=== PATIENT | female | born 1975 | race Two or more races ===

== ENCOUNTER 2022-12-22 17:07 | Emergency (ER) | payer BC ==
[~2022-12-22] VITALS: Ht 157.5 cm; Wt 56.7 kg
[2022-12-22] MEDS ORDERED: AMLO-212 PO (18:51)
--- NOTE | 2022-12-22 19:00 | NUR ---
BIBS FOR HTN. A/O X 3, ABLE TO MAKE NEEDS KNOWN.
--- NOTE | 2022-12-22 19:23 | NUR ---
Patient discharged to home in stable condition. Written and verbal after care instructions given. Patient verbalizes understanding of instruction.
[2022-12-22 19:24] VITALS: BP 205/117
== END 2022-12-22 19:25 | disposition home or self-care (01) ==
LOC: ER 17:17
DX: I10 Essential (primary) hypertension (principal)